=== PATIENT | male | born 1965 | race Native Hawaiian/Other Pacific Islander ===

== ENCOUNTER 2016-03-23 22:43 | Outpatient (CLI) | payer OTHER ==
[~2016-03-23 22:43] MED LIST: ATENOLOL100 MG PO; DICL1GEL2 TOP; INSUINJ47 SC; MORP2INJ PO; NOVOLOG MIX 70/30 PR SC; TRAM50TA PO; ZESTRIL40 MG PO
== END 2016-03-23 22:54 | disposition short-term general hospital (02) ==
LOC: AMB 22:43
DX: R41.82 Altered mental status, unspecified (principal); I95.89 Other hypotension
CPT/HCPCS: A0425; A0427